=== PATIENT | female | born 1960 | race Caucasian/White ===

== ENCOUNTER 2016-11-25 07:27 | Emergency (ER) | payer BC ==
--- NOTE | 2016-11-25 08:40 | ERNOTE ---
Upper Extremity HPI - Narrative Date of Service: 11/25/16 - General Extremities Pain Location: thumb: right Source: patient, family Exam Limitations: no limitations - Immun/Allergies/Home Medications Allergies/Adverse Reactions: Allergies Allergy/AdvReac Type Severity Reaction Status Date / Time No Known Allergies Allergy Verified 11/25/16 07:43 Home Medications: HOME MEDICATIONS Acetaminophen with Codeine [Tylenol with Codeine #3 Tablet] 1 each PO Q6H PRN # 24 tab 11/25/16 [Last Taken Unknown] Amantadine HCl [Amantadine] 100 mg PO QID 11/25/16 [Last Taken Unknown] Citalopram Hydrobromide [Citalopram HBr] 20 mg PO DAILY 11/25/16 [Last Taken Unknown] Loratadine [Claritin] 10 mg PO DAILY 11/25/16 [Last Taken Unknown] Meloxicam [Mobic] 15 mg PO DAILY 11/25/16 [Last Taken Unknown] Multivitamin [One Daily Essential] 1 each PO DAILY 11/25/16 [Last Taken Unknown] - History of Present Illness Narrative: 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 She apparently landed awkwardly on the right hand and incurred a thumb injury. Occurred: yesterday Location of Incident: home Severity: moderate Method of Injury: Reports: fell Reason for Fall: Reports: other - as stated Loss of Consciousness: Reports: no loss of consciousness Review of Systems - Review of Systems Constitutional: Present: See HPI EYE: Present: no symptoms reported ENT: Present: no symptoms reported Respiratory: Present: no symptoms reported Cardiology: Present: no symptoms reported Gastrointestinal/Abdominal: Present: no symptoms reported Genitourinary: Present: no symptoms reported Musculoskeletal: Present: See HPI Skin: Present: no symptoms reported Neurological: Present: See HPI Endocrine: Present: no symptoms reported Hematologic/Lymphatic: Present: no symptoms reported Psych: Present: no symptoms reported - Patient's Past Medical History Patient History - Medical: Other - Angelina's Chorea Patient History - Cardiac/Respiratory: No pertinent hx Patient History - Cancer: No Hx of Cancer Patient History - Surgical Procedures: Other Patient History - Other: None - Social History Living Situations: home Psych History: Hx of Depression Physical Exam - Physical Exam General Appearance: Present: wd/wn, alert, moderate distress Eye Exam: Normal inspection: bilateral, PERRL: bilateral Ears, Nose, Throat: Present: normal ENT inspection, hearing grossly normal, normal pharynx Neck: Present: normal inspection, nontender Respiratory: Present: no respiratory distress, normal breath sounds, no accessory muscle use, chest nontender, lungs clear Cardiovascular/Chest: Present: regular rate, rhythm, no murmur, normal peripheral pulses Gastrointestinal/Abdominal: Present: normal bowel sounds, nontender, nondistended, soft, no organomegaly Rectal Exam: Present: deferred Back Exam: Present: normal inspection, normal range of motion Extremity Exam: Present: no edema, other - tenderness at the right metacarpal phalangeal joint 1st digit Neurological Exam: Present: alert, oriented, normal mood/affect, other - constant choreiform motions Skin Exam: Present: normal color, warm/dry Lymphatic Exam: Present: no adenopathy ED Progress - Vital Signs Patient's Vital Signs:: I have reviewed the patient's vital signs. Vital Signs: Vital Signs 11/25/16 07:38 Temperature 36.3 C L Pulse Rate 73 Respiratory 16 Rate Blood Pressure 120/97 O2 Sat by Pulse 96 Oximetry - X-Ray X-Ray #1 X-Ray: hand Interpretation: Reviewed by me - Progress/Reassessment Chief Complaint: Hand Injury/Pain Progress:: Unchanged - Transfer of Care Expected Disposition: Discharge Procedures Pre-Proc Neuro Vasc Exam: normal Pre-Made Type: metal Splint: thumb spica Alignment good: Yes Splint applied by: Nurse Post-Proc Neuro Vasc Exam: normal Complications: Pt tony procedure well Plan - Plan Plan: Pt will continue to have falls as the Angelina's Disease progresses. Precautions will be warranted at the family level. Departure Clinical Impression: Thumb sprain Qualifiers: Encounter type: initial encounter Sprain of finger site: metacarpophalangeal joint Laterality: right Qualified Code(s): S63.641A - Sprain of metacarpophalangeal joint of right thumb, initial encounter - Departure Disposition: Home self-care Condition: Good Instructions: Thumb Sprain, Angelina Disease Referrals: Sanna Méndez MD [Primary Care Provider] - Prescriptions: Acetaminophen with Codeine [Tylenol with Codeine #3 Tablet] 1 each PO Q6H PRN # 24 tab PRN Reason: Moderate Pain
[2016-11-25] MEDS ORDERED: ACETAMINOPHEN WITH CODEINE 1 EACH TABLET PO ONE (09:01)
[2016-11-25] MEDS ORDERED: ACETAMINOPHEN WITH CODEINE 1 EACH TABLET ONE (09:03)
[2016-11-25 09:08] VITALS: BP 124/84
--- OUTSIDE RECORDS SUMMARY | 2016-11-25 09:09 | XMS REPORT | Continuity of Care Document ---
:1960 Author Organization [facility] ([facility]) Address [address] [place] [address] Phone [phone] Care Team Providers Name Role Phone Sanna Méndez Primary Care Provider [phone] Source Comments This disclosure is being made pursuant to the Care Everywhere program, applicable federal and state laws, and may not contain all informaitonavailable regarding this patient.[facility] ([facility]) Active Allergies and Adverse Reactions No Known Allergies Current Medications Prescription Sig. Disp. Refills Start Date End Date Status multivitamin Take 1 Tab by Active tablet mouth daily. loratadine Take 10 mg by Active (CLARITIN) 10 mg mouth daily. tablet AMANTadine 100 mg Take 1 120 capsule 11 07/15/2016 Active capsule capsule (100 mg total) by mouth 4 times daily. citalopram 20 mg daily. 10/22/2016 Active tablet meloxicam 7.5 mg Take 1 tablet 30 tablet 3 11/11/2016 Active tablet (7.5 mg total) by mouth daily. IBUPROFEN PO Take 2 Tabs 11/11/2016 Discontinued by mouth 4 times daily as needed. 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 Chorea 07/15/2016 Leiomyoma of uterus, unspecified 03/06/2006 Most Recent Encounters Date Type Specialty Providers Description 11/14/2016 Telephone Neurology Michelle Encinas MD Chief Comp: Results 11/11/2016 Office Visit Neurology Michelle Encinas MD Dx: Chorea 11/11/2016 Office Visit Pathology [facility]el Laboy Chief Comp: Patient MD Reported Reason For Lab Services, Pfp Visit 11/11/2016 Office Visit Med Rheumatology [facility]el Lab[facility] Dx: Anti-TPO antibodies present (Primary Dx) 11/08/2016 Telephone Neurology Michelle Encinas MD Chief Comp: Labs Only 08/30/2016 Telephone Diabetes Services Meredith Plaza MD Chief Comp: Results 08/28/2016 Telephone Neurology Kristi Jha Chief Comp: Scheduling Social History Tobacco Use Types Packs/Day Years Used Date Never Smoker Smokeless Tobacco: Never Used Tobacco Cessation:Counseling Given: Yes Comments: Alcohol Use Drinks/Week oz/Week Comments No Last Filed Vital Signs Vital Sign Reading Time Taken Blood Pressure 122/68 11/11/2016 10:53 AM TYPE MAPPER Pulse 74 11/11/2016 10:53 AM TYPE MAPPER Temperature 36.6 C (97.9 F) 11/11/2016 10:53 AM TYPE MAPPER Respiratory Rate 16 03/22/2016 1:16 PM CDT Height 1.676 m (5' 5.98") 11/11/2016 10:53 AM TYPE MAPPER Weight 54.3 kg (119 lb 11.4 oz) 11/11/2016 10:53 AM TYPE MAPPER Body Mass Index 19.33 11/11/2016 10:53 AM TYPE MAPPER Oxygen Saturation 98% 07/15/2016 12:53 PM CDT Plan of Care Date Type Specialty Providers Description 01/27/2017 Appointment Neurology Michelle Encinas MD Subj: Appointment Scheduled [address] [place] [address] [phone] (Fax) Health Maintenance Due Date Last Done Comments HCV Screening 1960 Hepatitis B Vaccine (1 of 3 - Primary Series) 1960 Tdap Vaccine 1971 Lipid Disorder Screening 1978 MMR Vaccine 1978 Td Vaccine 1978 Mammogram 2000 Cervical Cancer Screening 04/23/2002 04/23/1999 Colonoscopy 2010 Influenza Vaccine: Seasonal (#1) 04/29/2016 Results from Last 3 Months URINE MICROSCOPIC (11/11/2016 1:11 PM) Component Value Range White Blood Cells, Urine 7(H) 0-5 /HPF Red Blood Cells, Urine <1 0-2 /HPF Squamous Epithelial Cells, Urine 5 <=10 /LPF Hyaline Cast, Urine 4 <=10 /LPF Mucous-Urine Rare None, Rare Specimen Urine URINALYSIS (11/11/2016 1:11 PM) Component Value Range Color, Urine Yellow Straw, Pale Yellow, Yellow, Clear, None Clarity, Urine Slightly Cloudy(A) Clear pH, Urine 5.0 <9.0 Glucose, Urine Negative Negative Blood, Urine Negative Negative Ketones, Urine Negative Negative Protein, Urine Negative Negative Urobilinogen, Urine Normal Normal Bilirubin, Urine Negative Negative Leukocyte Esterase, Urine Negative Negative Nitrite, Urine Negative Negative Spec Comins, Urine 1.025 1.000-1.030 Specimen Urine DIFFERENTIAL (11/11/2016 12:49 PM) Component Value Range % Neutrophils-Auto Diff 73.1 % Neutrophils-Auto Diff 4750 6041-4598 /MM3 % Lymphocytes-Auto Diff 19.8 % Lymphocytes-Auto Diff 1524 319-3107 /MM3 % Monocytes-Auto Diff 5.9 % Monocytes-Auto Diff 380 130-860 /MM3 % Eosinophils-Auto Diff 0.8 % Eosinophils-Auto Diff 50 40-390 /MM3 % Basophils 0.2 % Basophils-Auto Diff 10 10-136 /MM3 % Immature Granulocytes-Auto Diff 0.2 % Immature Granulocytes-Auto Diff 10 /MM3 Specimen Whole Blood CBC (COMPLETE BLOOD COUNT) (11/11/2016 12:49 PM) Component Value Range WBC Count 6.5 3.7-10.5 K/MM3 RBC Count 5.01 4.00-5.20 M/MM3 Hemoglobin 14.4 11.9-15.5 g/dL Hematocrit 43 35-47 % MCV (Mean Corpuscular Volume) 86 82-99 FL MCH (Mean Corpuscular Hemoglobin) 29 25-35 PG MCHC (Mean Corpuscular Hemoglobin Concentration) 34 32-36 % Platelet Count 190 150-400 K/MM3 MPV (Mean Platelet Volume) 11.0 9.4-12.3 FL RBC Dist Width-STD 41.7 36.4-46.3 FL RBC Distrib Width 13.4 9.0-14.5 % Nucleated RBC 0 /100 WBC Specimen Whole Blood TOTAL PROTEIN (11/11/2016 12:49 PM)Only the most recent of2 resultswithin the time period is included. Component Value Range Total Protein 6.9 6.0-8.0 g/dL Specimen Blood SERUM PROTEIN ELECTROPHORESIS (11/11/2016 12:49 PM) Component Value Range SPEP-Total Protein 6.9 6.0-8.0 g/dL SPEP-Albumin 4.5 3.7-5.0 g/dL SPEP-Alpha1 Fraction 0.3 0.3-0.5 g/dL SPEP-Alpha2 Fraction 0.6 0.4-0.6 g/dL SPEP-Beta1 Fraction 0.4 g/dL SPEP-Beta2 Fraction 0.3 g/dL SPEP-Beta Fraction Total 0.7 0.6-0.9 g/dL SPEP-Gamma Fraction 0.9 0.5-1.3 g/dL SPEP-Monoclonal Protein 0.0 g/dL SPEP-Path Interp See TextComment: A monoclonal protein is not identified by serum protein electrophoresis. Jennifer Batista M.D., R1 Pathology Resident I have personally reviewed the patient studies and I agree with the above report. Randy Villatoro M.D, Ph.D., Public Health Staff Nurse, Clinical Chemistry Laboratory, [facility] Questions can be directed to the Pathology Chemistry resident (pager #[phone]) Specimen Blood FERRITIN (11/11/2016 12:49 PM) Component Value Range Ferritin 37.7 13.0-150.0 ng/mL Specimen Blood CALCIUM (11/11/2016 12:49 PM) Component Value Range Calcium 9.3 8.5-10.5 mg/dL Specimen Blood VITAMIN D, 25-HYDROXY (11/11/2016 12:49 PM) Component Value Range Vitamin D, 25-OH 34Comment: 20-80 ng/mL This assay accurately quantifies the sum of 25-hydroxyvitamin D3 and 25- hydroxyvitamin D2. Endocrine Society, [place] of [employer] (IOM), and World Health Organization (WHO) guidelines designate 25-h ydroxyvitamin D plasma concentrations below 20 ng/mL as deficient, based on increased frequency of adverse outcomes (e.g., osteoporotic fractures). 25-Hydroxyvitamin D reference ranges are a controversial topic, with some authorities suggesting optimal concentrations should be 30 ng/mL or higher based on correlations of 25-hydroxyvitamin D plasma concentrations with physiological parameters such as parathyroid hormone or calcium concentrations. However, optimal 25-hydroxyvitamin D concentrations greater than 20 ng/mL may be considered for specific disease conditions. Vitamin D toxicity is uncommon but may be seen at 25-hydroxyvitamin D concentrations greater than 150 ng/mL. Specimen Blood TISSUE TRANSGLUTAMINASE IGA (11/11/2016 12:49 PM) Component Value Range TTG IgA, Quantitative <0.5 0.0-15.0 U/mL TTG IgA, Qualitative Negative Negative Specimen Blood ERYTHROCYTE SEDIMENTATION RATE (11/11/2016 12:49 PM) Component Value Range ESR (Erythrocyte Sedimentation Rate) 6 0-20 mm/Hr Specimen Whole Blood C-REACTIVE PROTEIN (11/11/2016 12:49 PM) Component Value Range CRP (C-Reactive Protein) <0.5 <=0.5 mg/dL Specimen Blood CREATININE (11/11/2016 12:49 PM) Component Value Range Creatinine 1.0Comment: 0.5-1.0 mg/dL Creatinine switched to enzymatic method on 02/05/2011.GFR equation switched to IDMS-traceable MDRD equation on 02/05/2011. Calculated GFR values are not valid in clinical settings where serum creatinine is changing. Calculated GFR 57(L) >60 mL/min/1.73 m2 Specimen Blood CBC WITH DIFFERENTIAL (11/11/2016 12:49 PM) Specimen Whole Blood Narrative The following orders were created for panel order CBC WITH DIFFERENTIAL. Procedure Abnormality Status --------- ------ CBC (COMPLETE BLOOD COUNT)[[id number]] Final result DIFFERENTIAL[[id number]] Final result Please view results for these tests on the individual orders. LACTATE DEHYDROGENASE (LDH) (11/11/2016 12:49 PM) Component Value Range LDH 198 135-214 U/L Specimen Blood GAMMA GLUTAMYLTRANSPEPTIDASE (11/11/2016 12:49 PM) Component Value Range GGT 11 5-36 U/L Specimen Blood BILIRUBIN, TOTAL (11/11/2016 12:49 PM) Component Value Range Bilirubin Total 0.4 <=1.2 mg/dL Specimen Blood BILIRUBIN, DIRECT (11/11/2016 12:49 PM) Component Value Range Bilirubin, Direct <0.2 0.0-0.2 mg/dL Specimen Blood ASPARTATE AMINOTRANSFERASE (11/11/2016 12:49 PM) Component Value Range AST 18Comment: 0-32 U/L Adult reference ranges updated on 08/24/13 at 830am Specimen Blood ALKALINE PHOSPHATASE (11/11/2016 12:49 PM) Component Value Range ALP 71 35-104 U/L Specimen Blood ALBUMIN (11/11/2016 12:49 PM) Component Value Range Albumin 4.4 3.4-4.8 g/dL Specimen Blood ALANINE AMINOTRANSFERASE (11/11/2016 12:49 PM) Component Value Range ALT 16Comment: 0-33 U/L The upper limit of normal for alanine aminotransferase (ALT) reference ranges for adults is controversial with some authorities recommending limit as low as 30 U/L for males and 19 U/L for females. Th ere is increased incidence of subclinical liver disease (e.g., early steatohepatitis) in patients with ALT values in the range of 31-41 U/L for males and 20-33 U/L for females. ALT values should alway s be interpreted in conjunction with clinical history, physical examination findings, and, if applicable, data from other diagnostic tests. Specimen Blood COPPER LEVEL, URINE (11/11/2016 8:00 AM) Component Value Range Hours Collected 25 hr Total Volume 1479 mL Copper, Urine - ratio to HEADLIGHT ASSEMBLER Not ApplicableComment: ug/g HEADLIGHT ASSEMBLER Unable to accurately calculate the creatinine normalized result due to a low per volume result. Copper, Urine - per volume <1.0(L)Comment: 0.2-8.0 ug/dL INTERPRETIVE INFORMATION: Copper, Urine Individuals with symptomatic Home disease usually excrete more than 100 ug copper per day. Other conditions associated with elevated urine copper include cholestatic liver disease, proteinuria, some medications, and contaminated specimens. Although random specimens may contain diagnostic information, a 24-hour collection is a more consistent indicator of urine copper. Test developed and characteristics determined by [employer]. See Compliance Statement B: [employer] Copper, Urine - per 24 h Not Applicable 3-50 ug/d Creatinine, Urine - per volume 61 mg/dL Creatinine, Urine - per 24 h 866Comment: 500-1400 mg/d Performed by [facility], [address] [place] [address] [email or web address]), Ricardo Chakraborty MD, Lab. Director Specimen Urine Narrative Specimen Source: Specimen Start Date:
== END 2016-11-25 09:13 | disposition home or self-care (01) ==
LOC: ER 07:27
PROC: 2W3GX1Z Immobilization of Right Thumb using Splint (ICD-10-PCS; principal; 2016-11-25)
DX: S63.641A Sprain of metacarpophalangeal joint of right thumb, initial encounter (principal); W19.XXXA Unspecified fall, initial encounter; Z91.81 History of falling; Y92.009 Unspecified place in unspecified non-institutional (private) residence as the place of occurrence of the external cause

== ENCOUNTER 2017-07-27 13:03 | Emergency (ER) | payer BC ==
[2017-07-27] MEDS ORDERED: DIPHTH,PERTUSS(ACELL),TET VAC 0.5 ML VIAL IM ONE ×2 (13:30→13:44)
[2017-07-27 13:39] VITALS: BP 117/48
--- NOTE | 2017-07-27 13:44 | ERNOTE ---
Head Injury HPI - Narrative Date of Service: 07/27/17 - General Injury to: head Time Seen by Provider: 07/27/17 13:15 Source: patient Exam Limitations: no limitations - Immun/Allergies/Home Medications Immunization: IMMUNIZATION HX Immunizations Up to Date Yes History of Influenza Vaccine Yes Hx Pneumococcal Vaccination Yes Allergies/Adverse Reactions: Allergies Allergy/AdvReac Type Severity Reaction Status Date / Time No Known Allergies Allergy Verified 07/27/17 13:13 Home Medications: HOME MEDICATIONS Amantadine HCl [Amantadine] 100 mg PO QID 11/25/16 [Last Taken Unknown] Citalopram Hydrobromide [Citalopram HBr] 20 mg PO DAILY 11/25/16 [Last Taken Unknown] Loratadine [Claritin] 10 mg PO DAILY 11/25/16 [Last Taken Unknown] Meloxicam [Mobic] 15 mg PO DAILY 11/25/16 [Last Taken Unknown] Multivitamin [One Daily Essential] 1 each PO DAILY 11/25/16 [Last Taken Unknown] - History of Present Illness Narrative: Pt. comes in with c/o laceration after she tripped and hit the back of her head on the end table in her living room. 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 Pt. states that she has some mild dizziness, but denies any headache, NVD, fever, recent illness, or injury, and denies any SOB, or CP, LOC or alleviating factors or aggravating factors. Pt. is unsure of when her last tetanus was. Review of Systems - Review of Systems Constitutional: Present: no symptoms reported. Absent: recent illness, fever, chills, weakness, fatigue, malaise EYE: Present: no symptoms reported ENT: Present: no symptoms reported Respiratory: Present: no symptoms reported. Absent: shortness of breath, cough , wheezing Cardiology: Present: no symptoms reported. Absent: chest pain, palpitations, edema Gastrointestinal/Abdominal: Present: no symptoms reported. Absent: nausea, vomiting, diarrhea Genitourinary: Present: no symptoms reported Musculoskeletal: Present: no symptoms reported. Absent: back pain, joint pain Skin: Present: other - laceration post scalp. Absent: rash, change in hair/ nails Neurological: Present: dizziness/light-headedness, pre-existing deficit - chorea. Absent: headache, numbness, tingling Endocrine: Present: no symptoms reported Hematologic/Lymphatic: Present: no symptoms reported Psych: Present: no symptoms reported - Patient's Past Medical History Patient History - Medical: Other - eric's Chorea Patient History - Cardiac/Respiratory: No pertinent hx Patient History - Cancer: No Hx of Cancer Patient History - Surgical Procedures: T & A Patient History - Other: None LMP (females 10-50): 1 year ago - Social History Living Situations: home Psych History: Hx of Depression Smoking Status: Never smoker Alcohol Use: none Drug Use: none - Immunizations Immunizations Up to Date: Yes Hx Pneumococcal Vaccination: Yes History of Influenza Vaccine: Yes Physical Exam - Physical Exam General Appearance: Present: wd/wn, alert, no apparent distress Head Exam: Present: lacerations - post occiput 1cm gaping open 0.3cm into subcutaneous Eye Exam: Normal inspection: bilateral, PERRL: bilateral, EOMI: bilateral Ears, Nose, Throat: Present: normal ENT inspection, normal pharynx Neck: Present: normal inspection, nontender. Absent: lymphadenopathy (R), lymphadenopathy (L) Respiratory: Present: no respiratory distress, normal breath sounds, no accessory muscle use, chest nontender, lungs clear Cardiovascular/Chest: Present: regular rate, rhythm, no murmur, normal peripheral pulses Back Exam: Present: normal inspection, normal range of motion, no vertebral tenderness Extremity Exam: Present: normal inspection, non-tender, normal range of motion, no edema Neurological Exam: Present: alert, oriented, normal mood/affect, no motor/ sensory deficits, therapist occupational II-XII nml as tested, normal cerebellar test Skin Exam: Present: normal color, warm/dry ED Progress - Vital Signs Patient's Vital Signs:: I have reviewed the patient's vital signs. Vital Signs: Vital Signs 07/27/17 13:05 Temperature 36.9 C Pulse Rate 87 Respiratory 16 Rate Blood Pressure 137/80 O2 Sat by Pulse 95 Oximetry - CT/Ultrasound CT/Ultrasound Narrative: Head CT without any intracraneal process. - Progress/Reassessment Chief Complaint: Head Injury Progress:: Improved Procedures Posterior Occipital I & D Prep: betadine prep Length of Repair/Wound (cm): 1 Wound's Depth/Shape: into subcutaneous Wound Explored: clean Wound Intervention: irrigated w/saline Distal NVT: neuro/vasc intact Wound Repaired With: christy Number of Sutures: 4 - close christy Complications: Pt tony procedure well Departure Clinical Impression: Laceration Head injury Qualifiers: Encounter type: initial encounter Qualified Code(s): S09.90XA - Unspecified injury of head, initial encounter - Departure Disposition: Home self-care Condition: Good Instructions: Laceration Care, Adult, [id number] Additional Instructions: Please may wash hair once as much as able with baby shampoo only suad not scrub and be careful brushing hair. Please have christy removed in 7-10 days. Referrals: Sanna Méndez MD [Primary Care Provider] -
== END 2017-07-27 14:41 | disposition home or self-care (01) ==
LOC: ER 13:03
PROC: 0JQ00ZZ Repair Scalp Subcutaneous Tissue and Fascia, Open Approach (ICD-10-PCS; principal; 2017-07-27)
DX: S01.81XA Laceration without foreign body of other part of head, initial encounter (principal); W01.190A Fall on same level from slipping, tripping and stumbling with subsequent striking against furniture, initial encounter; Z91.81 History of falling; Y93.9 Activity, unspecified; Y92.008 Other place in unspecified non-institutional (private) residence as the place of occurrence of the external cause; S09.90XA Unspecified injury of head, initial encounter; G10 Huntington's disease; Z23 Encounter for immunization

== ENCOUNTER 2017-08-20 13:57 | Emergency (ER) | payer BC ==
[2017-08-20] MEDS ORDERED: MECLIZINE HCL 25 MG TABLET PO ONE (14:43)
--- NOTE | 2017-08-20 14:44 | ERNOTE ---
Dizziness ER Record Date of Service: 08/20/17 Presenting Symptoms: dizziness Time Seen by Provider: 08/20/17 14:30 Source: patient, family, RN notes reviewed Exam Limitations: clinical condition Immunizations: IMMUNIZATION HX Immunizations Up to Date Yes History of Influenza Vaccine Yes Hx Pneumococcal Vaccination Yes Allergies/Adverse Reactions: Allergies Allergy/AdvReac Type Severity Reaction Status Date / Time No Known Allergies Allergy Verified 08/20/17 14:06 Home Medications: HOME MEDICATIONS Amantadine HCl [Amantadine] 100 mg PO QID 11/25/16 [Last Taken Unknown] Citalopram Hydrobromide [Citalopram HBr] 20 mg PO DAILY 11/25/16 [Last Taken Unknown] Loratadine [Claritin] 10 mg PO DAILY 11/25/16 [Last Taken Unknown] Multivitamin [One Daily Essential] 1 each PO DAILY 11/25/16 [Last Taken Unknown] Meclizine HCl [Antivert] 25 mg PO TID PRN #20 tab 08/20/17 [Last Taken Unknown] - History of Present Illness Narrative: 57 year old female brought to the ED by her significant other for dizziness that began a little over a week ago. She fell 3 weeks ago, injuring her occipital scalp and having to have christy. A CT scan was done at that time and did not show any intracranial abnormality. She saw her PCP 2 days ago for the dizziness. She had lab work done, which was unremarkable. She contacted her PCP' s office yesterday about her ongoing symptoms. She was directed to come here if she was getting worse. Date (Duration): 07/27/17 - initial head injury Noted on awakening:: No Associated Symptoms: Present: nausea, light headedness. Absent: hearing loss, ringing/roaring in ear, ear pain, vomiting, headache, weakness, numbness, sweating, sense of confusion Sense of movement: Present: vague Decreased ability to stand/walk:: Present: walks w/o assistance Usually:: Present: walks w/o assistance Modifying Factors - (Improves): Reports: nothing Modifying Factors - (Worsens): Reports: changing position, movement of head Prior Treament: Reports: recently seen, treated by physician. Denies: similar symptoms before Review of Systems - Review of Systems Constitutional: Present: malaise. Absent: recent illness, fever, chills EYE: Absent: eye pain, vision changes ENT: Present: nose congestion, nasal drainage. Absent: ear pain, sore throat Respiratory: Absent: shortness of breath, cough Cardiology: Absent: palpitations, syncope Gastrointestinal/Abdominal: Absent: vomiting, diarrhea, abdominal pain Genitourinary: Absent: frequency, decreased urinary output Musculoskeletal: Absent: muscle pain, neck pain Skin: Absent: lesions, lumps Neurological: Present: dizziness/light-headedness. Absent: headache, weakness, numbness Endocrine: Present: no symptoms reported Hematologic/Lymphatic: Present: no symptoms reported Psych: Present: no symptoms reported - Patient's Past Medical History Patient History - Medical: Other - Pawnee's chorea Patient History - Cardiac/Respiratory: No pertinent hx Patient History - Cancer: No Hx of Cancer Patient History - Surgical Procedures: T & A, Other Patient History - Other: None LMP (females 10-50): post - Social History Living Situations: home Psych History: Hx of Depression Smoking Status: Never smoker Alcohol Use: none Drug Use: none - Immunizations Immunizations Up to Date: Yes Hx Pneumococcal Vaccination: Yes History of Influenza Vaccine: Yes Physical Exam - Physical Exam General Appearance: Present: alert, no apparent distress, thin Head Exam: Present: normal inspection Eye Exam: Normal inspection: bilateral, PERRL: bilateral Ears, Nose, Throat: Present: nasal congestion, normal pharynx. Absent: hearing decreased, abnormal TM (R), abnormal TM (L), sinus pain/drainage Neck: Present: normal inspection, nontender, supple Respiratory: Present: no respiratory distress, normal breath sounds, no accessory muscle use, lungs clear Cardiovascular/Chest: Present: regular rate, rhythm, no murmur Extremity Exam: Present: normal inspection, non-tender, no edema Neurological Exam: Present: alert, oriented, other - chorea present. Absent: normal mood/affect Skin Exam: Present: warm/dry, pallor ED Progress - Results and Orders Patient's Lab Results:: I have reviewed the patient's lab results. - Vital Signs Patient's Vital Signs:: I have reviewed the patient's vital signs. Vital Signs: Vital Signs 08/20/17 08/20/17 14:06 14:14 Temperature 37.6 C H Pulse Rate 82 102 H Respiratory 16 Rate Blood Pressure 118/69 O2 Sat by Pulse 98 Oximetry - Progress/Reassessment Chief Complaint: Dizziness Progress:: Improved Plan - Plan Plan: Labs are stable since checked 2 days ago by her PCP. They were requesting to have another CT scan of the head done, but explained that this would not be beneficial as the only symptom she has been having is lightheadedness which is not indicative of intracranial bleeding. The lightheadedness did improve after Meclizine. Rx given. Recommended contacted her neurologist if symptoms persist. Patient in agreement with plan. Departure Clinical Impression: Dizziness, nonspecific - Departure Disposition: Home Follow Up Needed Condition: Good Instructions: Dizziness, [id number] Additional Instructions: Continue your current medications Contact neurology for follow up if no improvement by next week Referrals: Sanna Méndez MD [Primary Care Provider] - Prescriptions: Meclizine HCl [Antivert] 25 mg PO TID PRN #20 tab PRN Reason: dizziness
[2017-08-20] MEDS ORDERED: MECLIZINE HCL 25 MG TABLET ONE (14:51)
[2017-08-20 14:57] LABS: Hematocrit 38.6 % (37.0-47.0); Hemoglobin 12.9 gm/dL (12.5-16.0); Mean Cell Volume 88.9 fl (78-100); Mean Corpuscular Hemoglobin 29.7 pg (27-31); Mean Corpuscular Hgb Conc 33.4 g/dl (32-36); Mean Platelet Volume 10.1 fl (6.0-9.5); Neutrophil # 5.1 K/mm3 (1.3-6.0); Neutrophil % 72.4 % (42-75.0); Platelet Count 164 K/mm3 (150-450); Red Blood Count 4.34 M/mm3 (4.2-5.4); Red Cell Distribution Width 12.7 % (11.5-14.0)
[2017-08-20 15:17] LABS: Anion Gap 12.4 mmol/L (6.8-13.8); BUN/Creatinine Ratio 32.4 (9.0-21.6); Bilirubin, Total 0.5 mg/dL (0.0-1.1); Ca. Corrected For Albumin 8.5 mg/dL (8.4-10.2); Calcium * 8.8 mg/dL (7.9-10.9); Carbon Dioxide 30.8 mmol/L (24-32.6); Potassium 4.2 mmol/L (3.4-4.6); Total Protein 7.2 gm/dL (6.2-8.2)
[2017-08-20 15:33] VITALS: BP 123/74
== END 2017-08-20 15:37 | disposition home or self-care (01) ==
LOC: ER 13:57
DX: R42 Dizziness and giddiness (principal)

== ENCOUNTER 2017-08-29 14:42 | Emergency (ER) | payer BC ==
--- NOTE | 2017-08-29 15:36 | ERNOTE ---
Head Injury HPI - Narrative Date of Service: 08/29/17 - General Injury to: head Time Seen by Provider: 08/29/17 15:18 Source: patient, family Exam Limitations: no limitations - Immun/Allergies/Home Medications Immunization: IMMUNIZATION HX Immunizations Up to Date Yes History of Influenza Vaccine No Hx Pneumococcal Vaccination No Allergies/Adverse Reactions: Allergies Allergy/AdvReac Type Severity Reaction Status Date / Time No Known Allergies Allergy Verified 08/29/17 14:58 Home Medications: HOME MEDICATIONS Amantadine HCl [Amantadine] 100 mg PO QID 11/25/16 [Last Taken Unknown] Citalopram Hydrobromide [Citalopram HBr] 20 mg PO DAILY 11/25/16 [Last Taken Unknown] Loratadine [Claritin] 10 mg PO DAILY 11/25/16 [Last Taken Unknown] Multivitamin [One Daily Essential] 1 each PO DAILY 11/25/16 [Last Taken Unknown] Omeprazole Magnesium [Prilosec Otc] 20 mg PO DAILY 08/29/17 [Last Taken Unknown] - History of Present Illness Narrative: Pt. comes in with pain in her post occiput and her neck and upper back after a fall in her bathtub 3 days ago. Pt. denies any numbness or tingling but does state that she has been dizzy and had had nausea with occasional episodes of vomiting since incident. Occurred: last week Location Occurred: home Severity: moderate Head Injury Location: occipital Method of Injury: Reports: fell Reason for Fall: Reports: lost balance Loss of Consciousness: Reports: no loss of consciousness Associated Symptoms: Reports: neck pain, nausea, other injuries - upper back pain Review of Systems - Review of Systems Constitutional: Present: no symptoms reported. Absent: recent illness, fever, chills, weakness, fatigue, malaise EYE: Present: no symptoms reported. Absent: double vision, vision changes ENT: Present: no symptoms reported. Absent: nose congestion, nasal drainage, throat swelling Respiratory: Present: no symptoms reported. Absent: shortness of breath, cough , wheezing Cardiology: Present: no symptoms reported. Absent: chest pain, palpitations, edema Gastrointestinal/Abdominal: Present: nausea. Absent: vomiting, diarrhea, abdominal pain Genitourinary: Present: no symptoms reported Musculoskeletal: Present: back pain, neck pain Skin: Present: lumps - post occiput Neurological: Present: headache, dizziness/light-headedness, pre-existing deficit. Absent: seizure, weakness, numbness, tingling All Other Systems: All systems neg except as marked - Patient's Past Medical History Patient History - Medical: Other - eric's chorea Patient History - Cardiac/Respiratory: No pertinent hx Patient History - Cancer: No Hx of Cancer Patient History - Surgical Procedures: T & A, Other Patient History - Other: None - Social History Living Situations: home Psych History: Hx of Depression Smoking Status: Never smoker Have you smoked in the past 12 months: No Do you dip or chew tobacco: No Alcohol Use: none Drug Use: none - Immunizations Immunizations Up to Date: Yes Hx Pneumococcal Vaccination: No History of Influenza Vaccine: No Physical Exam - Physical Exam General Appearance: Present: wd/wn, alert, no apparent distress Head Exam: Present: contusions - pR post occiput 4cm in diameter. Absent: active bleeding, lacerations Eye Exam: Normal inspection: bilateral, PERRL: bilateral, EOMI: bilateral Ears, Nose, Throat: Present: normal ENT inspection, normal pharynx Neck: Present: normal inspection, nontender, supple, full range of motion. Absent: lymphadenopathy (R), lymphadenopathy (L) Respiratory: Present: no respiratory distress, normal breath sounds, no accessory muscle use, chest nontender, lungs clear Cardiovascular/Chest: Present: regular rate, rhythm, no murmur, normal peripheral pulses Gastrointestinal/Abdominal: Present: normal bowel sounds, nontender, nondistended, soft, no organomegaly Back Exam: Present: normal inspection, normal range of motion, no CVA tenderness , no vertebral tenderness Extremity Exam: Present: normal inspection, non-tender, normal range of motion, no edema Neurological Exam: Present: alert, oriented, normal mood/affect, no motor/ sensory deficits, services clerk II-XII nml as tested, other - HINTS exam abnormal likely due to chorea Skin Exam: Present: normal color, warm/dry ED Progress - Vital Signs Patient's Vital Signs:: I have reviewed the patient's vital signs. Vital Signs: Vital Signs 08/29/17 08/29/17 15:00 15:21 Temperature 36.8 C 36.8 C Pulse Rate 87 82 Respiratory 16 16 Rate Blood Pressure 124/72 100/67 O2 Sat by Pulse 98 98 Oximetry - X-Ray X-Ray #1 X-Ray: thoracic Interpretation: Reviewed by me X-ray Comments: No obvious acute osseous abnormality - CT/Ultrasound CT/Ultrasound Narrative: head and neck CT without any acute abnormality. Head CT with some possible normal pressure hydrocephalus but scan does not look unchanged from previous so feel that this is unlikely but will refer pt. to PCP for follow up. - Progress/Reassessment Chief Complaint: Head Injury Progress:: Unchanged Departure Clinical Impression: Thoracic sprain Head injury Qualifiers: Encounter type: initial encounter Qualified Code(s): S09.90XA - Unspecified injury of head, initial encounter Cervical sprain Qualifiers: Encounter type: initial encounter Qualified Code(s): S13.9XXA - Sprain of joints and ligaments of unspecified parts of neck, initial encounter - Departure Disposition: Home self-care Condition: Good Instructions: Muscle Strain, [id number], Head Injury, Adult, [id number] Additional Instructions: Please follow up with primary provider in 2-3 days. Please do not shower alone and discuss with your primary provider home health referral for help with bathing and safety in the home. Referrals: Sanna Méndez MD [Primary Care Provider] -
[2017-08-29 16:47] VITALS: BP 145/66
== END 2017-08-29 16:35 | disposition home or self-care (01) ==
LOC: ER 14:42
DX: S13.9XXA Sprain of joints and ligaments of unspecified parts of neck, initial encounter (principal); S09.90XA Unspecified injury of head, initial encounter; S23.3XXA Sprain of ligaments of thoracic spine, initial encounter; W18.39XA Other fall on same level, initial encounter; Y93.89 Activity, other specified; Y92.89 Other specified places as the place of occurrence of the external cause; Y99.9 Unspecified external cause status

== ENCOUNTER 2019-07-14 16:39 | Inpatient (IN) ==
[2019-07-14] MEDS ORDERED: BUPIVACAINE HCL/EPINEPHRINE 50 ML VIAL ONE (16:46)
[2019-07-14] MEDS ORDERED: BACITRACIN 50,000 UNITS VIAL ONE (16:46)
--- NOTE | 2019-07-14 16:56 | ANES ---
Anesthesia Pre Procedure Eval HOME MEDICATIONS Loratadine [Claritin] 10 mg PO DAILY 11/25/16 [Last Taken Unknown] gabapentin 400 mg capsule 400 mg PO TID 07/23/18 [Last Taken 06/30/19] omeprazole magnesium 20 mg tablet,delayed release 20 mg PO DAILY PRN 10/30/18 [Last Taken Unknown] naproxen 500 mg tablet 500 mg PO BID #60 tab 05/10/19 [Last Taken 06/30/19] hydrocodone 5 mg-acetaminophen 325 mg tablet See Rx Instructions PO Q6H PRN #75 tab 06/23/19 [Last Taken 06/30/19] tetrabenazine 25 mg tablet 12.5 mg PO BID tab 06/28/19 [Last Taken 07/01/19] oxycodone-acetaminophen 5 mg-325 mg tablet 1 - 2 tab PO Q4H PRN #60 tab 07/06/19 [Last Taken Unknown] duloxetine 20 mg capsule,delayed release 20 mg PO DAILY #30 cap 07/07/19 [Last Taken Unknown] pregabalin 100 mg capsule 100 mg PO BID #60 cap 07/07/19 [Last Taken Unknown] Allergies/Adverse Reactions: Allergies Allergy/AdvReac Type Severity Reaction Status Date / Time No Known Allergies Allergy Verified 07/14/19 15:23 - Planned Procedure Planned Procedure: I&D Abscess Medication List Reviewed:: Yes Allergies Verified: Yes Medical History (Updated 07/01/19 @ 11:09 by Ruthann Sahu RN) Left knee injury (Acute) Onset Date: ~10/24/18 Knee pain, left (Acute) Onset Date: ~10/24/18 Mariam presents for evaluation of left knee pain after twisting injury on Friday. She has a stable knee on exam with some meniscal irritation signs. Of note, she also has a history of Donalds's disease. I counseled her on options including nonoperative management with symptomatic care and physical therapy versus obtaining an MRI for further evaluation. She would like to proceed with a trial of PT and nonoperative management. Acid reflux Ankle fracture, left Onset Date: 06/21/19 left fibula Fibromyalgia H/O menorrhagia Onset Date: Unknown Rare disorder causing involuntary movements and spasms Onset Date: Unknown Seasonal allergies Huntingtons chorea Onset Date: Unknown Rosacea, unspecified Onset Date: Unknown Uterine fibroid Onset Date: Unknown Surgical History (Updated 07/14/19 @ 13:51 by Lupe Gillis LPN) History of open reduction and internal fixation (ORIF) procedure Onset Date: ~07/01/19 Open reduction internal fixation left lateral malleolus fracture, syndesmotic stabilization: Dr. Pierson History of tonsillectomy Onset Date: Unknown History of uterine fibroid removal Family History (Updated 07/01/19 @ 11:08 by Ruthann Sahu RN) Father Heart disease Hypertension Mother Dementia History of stroke Binswanger's disease possible these illnesses could have been Donalds's Disease Brother Alive and well Brother Alive and well - Family Anesthesia History Family History:: no untoward family reactions to anesthesia, no familial bleeding tendencies, no family history of clotting disorders, no family history of premature - Airway/Neck/Teeth Teeth Condition: missing Neck Exam: full range of motion Mallampatti Score: 2 Thyromental (T-M) distance: > 6 cm Mandibulo Hyoid distance: > 3 cm - Respiratory Respiratory Physical: lungs clear Smoking Status: Never smoker Sleep Apnea currently treated: No Sleep Apnea by current assessment: No - Cardiovascular Tolerate Activity: Poor - limited mobility secondary to Huntingtons Heart Sounds: S1 & S2, Regular - Anesthesia Assessment and Plan ASA Class: PS, III, E Anesthesia Type Plan: MAC
[2019-07-14] MEDS ORDERED: PROPOFOL VIAL IV ONE (17:03)
[2019-07-14] MEDS ORDERED: ceFAZolin SODIUM 1 GM VIAL IV ONE (18:10)
[2019-07-14] MEDS ORDERED: ceFAZolin SODIUM 1 GM VIAL ONE (18:12)
--- NOTE | 2019-07-14 19:43 | ANES ---
Post Anesthesia Discharge - Transfer of Care Transfer of Care handoff given to nurse: Yes - Discharge to ASU Discharge to ASU-no complications/pt stable: Yes - In room, alert.
--- NOTE | 2019-07-14 20:50 | ANES ---
Post Anesthesia Assessment - Vital Signs Vitals: Last Vital Signs Temp 37.4 C 07/14/19 19:50 Pulse 100 07/14/19 19:50 Resp 16 07/14/19 19:50 BP 113/67 07/14/19 19:50 Pulse Ox 98 07/14/19 19:50 Airway Patency: Normal - Mental Status Level Of Consciousness: Awake, Alert, Appropriate - Pain Level Pain Score: 0 - N/V Assessment Nausea/Vomiting Presence: None Dehydration:: No
[2019-07-14] MEDS ORDERED: PANTOPRAZOLE SODIUM 20 MG TABLET.DR PO PRN (20:54)
[2019-07-14] MEDS: CIPROFLOXACIN IN 5 % DEXTROSE 400 MG/200 ML BAG IV SCH (21:04)
[2019-07-14] MEDS: metroNIDAZOLE/SODIUM CHLORIDE 500 MG/100 ML BAG IV SCH (21:35)
[2019-07-14] MEDS: oxyCODONE HCL/ACETAMINOPHEN 1 TAB TABLET PO PRN (21:41)
[2019-07-14] MEDS: ENOXAPARIN SODIUM 40 MG/0.4 ML SYRG SC SCH (22:44)
[2019-07-15] MEDS: metroNIDAZOLE/SODIUM CHLORIDE 500 MG/100 ML BAG IV SCH ×3 (05:42→23:51)
[2019-07-15] MEDS: oxyCODONE HCL/ACETAMINOPHEN 1 TAB TABLET PO PRN ×3 (05:43→23:43)
[2019-07-15] MEDS ORDERED: RINGER'S SOLUTION,LACTATED 1,000 ML IV PRN (06:00)
[2019-07-15] MEDS ORDERED: BUPIVACAINE HCL/EPINEPHRINE 50 ML VIAL IJ PRN ×2 (06:00→14:27)
[2019-07-15] MEDS ORDERED: ceFAZolin SODIUM/DEXTROSE,ISO 2 GM/50 ML BAG IV PRN (06:00)
[2019-07-15] MEDS ORDERED: PANTOPRAZOLE SODIUM 20 MG TABLET.DR PO PRN (06:30)
[2019-07-15] MEDS: TETRABENAZINE 12.5 MG PO SCH ×3 (06:37→18:25)
--- NOTE | 2019-07-15 07:23 | OR ---
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 Méndez. She has Rashida's chorea. She had ORIF of a left ankle fracture on 07/02/2019. She has been relatively immobile. Her noted material on the rim of the toilet. There is erythema and induration in the gluteal cleft and left buttock. She will require anesthetic and assistance for visualization of the area. FINDINGS: Midline pilonidal cyst which connects with an 8 x 8 cm area of press ure necrosis in the soft tissue of the left buttock. NARRATIVE OF PROCEDURE: The patient was identified preoperatively and prior to the administration of anesthetic a multidisciplinary timeout was observed. The patient was given intravenous Ancef. After the introduction of intravenous sedation the patient was placed in the left lateral position with appropriate padding and monitoring. The gluteal cleft and buttocks were prepped with Betadine solution and isolated with sterile disposable drapes. Initial inspection revealed induration and erythema involving the medial aspect of the left buttock. There was a 3 mm central pore with visible underlying necrotic material and profuse purulent drainage with pressure on the buttock. The material was submitted for culture. There was also a 2 mm pore in the gluteal cleft which produced purulent material upon compression. The area was infiltrated with 0.5% Marcaine. The midline pore was probed and an underlying cavity identified. A 1 cm skin incision was made around the pore. The cavity was found to contain a large clump of hair. This was removed. The cavity was then debrided to healthy appearing subcutaneous tissue. Next the opening on the medial aspect of the left buttock was probed and found to connect to a large cavity in the subcutaneous tissue. A cruciate skin incision was made and the area entered. There was a large amount of necrotic subcutaneous fat which was gradually debrided back to viable appearing tissue. A finger was used to break up all loculations and the interior the cavity was irrigated with saline and inspected to ensure that the full extent of necrosis had been addressed. The cavity was found to communicate with the medial area of pilonidal disease. The cavity appeared hemostatic. Additional 0.5% Marcaine was injected. After receiving correct counts, the wound was packed with 2 inch iodoform gauze. A dressing of folded 4 x 4's, Mepilex border, and Medipore tape was applied. The patient was then returned to the supine position. The patient tolerated the anesthetic and procedure well without complication. There was no measurable blood loss. She was transferred back to the floor for recovery. She will require admission observation for IV antibiotics and return to the OR for wound inspection and packing change tomorrow. The operative findings were explained to the patient and her using diagrams. Reviewed and electronically signed
[2019-07-15] MEDS: CIPROFLOXACIN IN 5 % DEXTROSE 400 MG/200 ML BAG IV SCH ×2 (08:40→19:39)
[2019-07-15] MEDS: GABAPENTIN 400 MG CAPSULE PO SCH ×3 (08:41→18:25)
[2019-07-15] MEDS: DULoxetine HCL 20 MG CAPSULE.SA PO SCH (08:41)
[2019-07-15] MEDS ORDERED: BUPIVACAINE HCL/EPINEPHRINE 50 ML VIAL ONE (12:14)
[2019-07-15] MEDS ORDERED: LIDOCAINE HCL 20 ML VIAL ONE (13:49)
[2019-07-15] MEDS ORDERED: PROPOFOL VIAL IV ONE (13:49)
[2019-07-15] MEDS ORDERED: fentaNYL CITRATE/PF 50 MCG/ML AMPUL ONE (13:50)
[2019-07-15] MEDS ORDERED: NALOXONE HCL 0.4 MG/ML VIAL ONE (13:50)
--- NOTE | 2019-07-15 13:56 | ANES ---
Anesthesia Pre Procedure Eval Vitals/Labs: Last Vital Signs Temp 36.3 C 07/15/19 10:00 Pulse 71 07/15/19 10:00 Resp 20 07/15/19 10:00 BP 135/60 07/15/19 10:00 Pulse Ox 96 07/15/19 10:00 HOME MEDICATIONS Loratadine [Claritin] 10 mg PO DAILY 11/25/16 [Last Taken Unknown] gabapentin 400 mg capsule 400 mg PO TID 07/23/18 [Last Taken 06/30/19] omeprazole magnesium 20 mg tablet,delayed release 20 mg PO DAILY PRN 10/30/18 [Last Taken Unknown] naproxen 500 mg tablet 500 mg PO BID #60 tab 05/10/19 [Last Taken 06/30/19] tetrabenazine 25 mg tablet 12.5 mg PO BID tab 06/28/19 [Last Taken 07/01/19] oxycodone-acetaminophen 5 mg-325 mg tablet 1 - 2 tab PO Q4H PRN #60 tab 07/06/19 [Last Taken Unknown] duloxetine 20 mg capsule,delayed release 20 mg PO DAILY #30 cap 07/07/19 [Last Taken Unknown] pregabalin 100 mg capsule 100 mg PO BID #60 cap 07/07/19 [Last Taken Unknown] Allergies/Adverse Reactions: Allergies Allergy/AdvReac Type Severity Reaction Status Date / Time No Known Allergies Allergy Verified 07/14/19 17:02 - Planned Procedure Planned Procedure: dressing change Medication List Reviewed:: Yes Allergies Verified: Yes Medical History (Updated 07/01/19 @ 11:09 by Ruthann Sahu RN) Left knee injury (Acute) Onset Date: ~10/24/18 Knee pain, left (Acute) Onset Date: ~10/24/18 Mariam presents for evaluation of left knee pain after twisting injury on Friday. She has a stable knee on exam with some meniscal irritation signs. Of note, she also has a history of Rashida's disease. I counseled her on options including nonoperative management with symptomatic care and physical therapy versus obtaining an MRI for further evaluation. She would like to proceed with a trial of PT and nonoperative management. Acid reflux Ankle fracture, left Onset Date: 06/21/19 left fibula Fibromyalgia H/O menorrhagia Onset Date: Unknown Rare disorder causing involuntary movements and spasms Onset Date: Unknown Seasonal allergies Huntingtons chorea Onset Date: Unknown Rosacea, unspecified Onset Date: Unknown Uterine fibroid Onset Date: Unknown Surgical History (Updated 07/14/19 @ 13:51 by Lupe Gillis LPN) History of open reduction and internal fixation (ORIF) procedure Onset Date: ~07/01/19 Open reduction internal fixation left lateral malleolus fracture, syndesmotic stabilization: Dr. Pierson History of tonsillectomy Onset Date: Unknown History of uterine fibroid removal Family History (Updated 07/01/19 @ 11:08 by Ruthann Sahu RN) Father Heart disease Hypertension Mother Dementia History of stroke Binswanger's disease possible these illnesses could have been Harford's Disease Brother Alive and well Brother Alive and well - Family Anesthesia History Family History:: no untoward family reactions to anesthesia, no familial bleeding tendencies, no family history of clotting disorders, no family history of premature - Airway/Neck/Teeth Within Normal Limits:: Yes Teeth Condition: intact Mallampatti Score: 2 Thyromental (T-M) distance: > 6 cm Mandibulo Hyoid distance: > 3 cm - Respiratory Respiratory Physical: lungs clear Smoking Status: Never smoker Discussed smoking cessation including day of surgery: No Sleep Apnea currently treated: No Sleep Apnea by current assessment: No Discussed Risks/Treatment of EULOGIO: No - Cardiovascular Tolerate Activity: Fair Heart Sounds: S1 & S2, Regular - Anesthesia Assessment and Plan ASA Class: PS, III Anesthesia Type Plan: MAC
[2019-07-15] MEDS ORDERED: RINGER'S SOLUTION,LACTATED 1,000 ML IV ONE (14:39)
--- NOTE | 2019-07-15 15:03 | ANES ---
Post Anesthesia Assessment - Vital Signs Vitals: Last Vital Signs Temp 36.8 C 07/15/19 14:51 Pulse 83 07/15/19 14:51 Resp 16 07/15/19 14:51 BP 118/63 07/15/19 14:51 Pulse Ox 96 07/15/19 14:51 Airway Patency: Normal - Mental Status Level Of Consciousness: Awake - Pain Level Pain Score: 0 - N/V Assessment Nausea/Vomiting Presence: None Dehydration:: No
--- NOTE | 2019-07-15 15:03 | ANES ---
Post Anesthesia Discharge - Transfer of Care Transfer of Care handoff given to nurse: Yes - Discharge from PACU Discharge from PACU when meets criteria: Yes - Discharge to ASU Discharge to ASU-no complications/pt stable: Yes
[2019-07-15] MEDS ORDERED: metroNIDAZOLE/SODIUM CHLORIDE 500 MG/100 ML BAG IV SCH (18:00)
[2019-07-15] MEDS: ENOXAPARIN SODIUM 40 MG/0.4 ML SYRG SC SCH ×2 (19:54→20:40)
[2019-07-16] MEDS: CIPROFLOXACIN IN 5 % DEXTROSE 400 MG/200 ML BAG IV SCH (05:22)
[2019-07-16] MEDS: oxyCODONE HCL/ACETAMINOPHEN 1 TAB TABLET PO PRN (05:55)
[2019-07-16] MEDS ORDERED: TETRABENAZINE 12.5 MG PO SCH (06:00)
--- NOTE | 2019-07-16 08:17 | OR ---
Operative Report - Dictated Report Narrative: OPERATIVE REPORT DATE OF OPERATION: 07/15/2019 PREOPERATIVE DIAGNOSIS: Abscess sacrum and left buttock POSTOPERATIVE DIAGNOSIS: Same OPERATION: Debridement of wound and packing change SURGEON: Juan David Ozuna MD ANESTHESIA: MAC/local INDICATIONS FOR PROCEDURE: The patient is a 59-year-old female with [place]'s chorea. She fell and fractured her left ankle which required ORIF. In the subsequent period of inactivity she is developed a combination of pilonidal abscess and pressure necrosis of the left buttock which required incision and drainage. She is brought back to monitor progression FINDINGS: Some residual nonviable tissue, however the base the wound is beginning to granulate NARRATIVE OF PROCEDURE: The patient was identified preoperatively and prior to the administration of anesthetic a multidisciplinary timeout was observed. With the patient in the left lateral position and after the ministration of intravenous sedation the perineum was inspected. The skin bridge between the sacrum and left buttock openings is nonviable as well as some of the margins of the opening. There is some residual nonviable fat but the wound is much less malodorous and surrounding inflammation has resolved. The base of the wound was debrided with scissors back to what appeared to be viable subcutaneous tissue. The skin bridge and margins of the ulcer were removed with scissors. The wound appeared hemostatic. It was irrigated with saline. The area was infiltrated with 0.5% Marcaine with epinephrine. After receiving a correct count the wound was repacked with 2 inch iodoform gauze. The wound was then dressed with folded 4 x 4, Mepilex border, and Medipore tape. The operative procedure was terminated at this point. The patient tolerated the anesthetic and procedure well without complication. There was minimal blood loss. No specimens were submitted. The patient was transferred back to the floor awake and in stable condition. The patient will require inpatient status for additional antibiotics and assistance with position changes and toileting. The wound now measures 3 cm x 5 cm opening with 3 cm depth and 1.5 cm undermining caudally. . Reviewed and electronically signed
--- NOTE | 2019-07-16 08:31 | PN ---
Subjective - Date and Time Seen Date: 07/15/19 Time: 07:45 Subjective Narrative: She has been comfortable. Her vital signs have been normal. Her stayed with her most of the night. She is tolerating clear liquid breakfast Objective - Review of Systems Generalized/Overall Review: Denies: Chills, Fever EENTM: Reports: No Symptoms Reported Respiratory: Denies: Cough, Shortness of Breath Cardiac: Denies: Chest Pain, Palpitations Abdominal: Reports: No Symptoms Reported Genitourinary Symptoms: Reports: No Symptoms Reported Musculoskeletal Complaints: Reports: Other - No complaints referable to the left leg. 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 Skin: Reports: Other - No new areas of concern Endocrine: Reports: No Symptoms Reported - Vitals Vitals: Last Vital Signs Temp 36.1 C 07/15/19 07:00 Pulse 84 07/15/19 07:00 Resp 16 07/15/19 07:00 BP 1425/65 H 07/15/19 07:00 Pulse Ox 98 07/15/19 07:00 - Exam Constitutional: Present: Alert, Oriented x3, Cooperative, No distress ENT Exam: Present: normal ENT inspection Neck: Present: normal inspection Respiratory: Present: no respiratory distress Cardiovascular/Chest: Present: regular rate, rhythm, other - Denies pain or tenderness /Rectal: Present: Exam deferred Extremity: Present: normal range of motion, normal inspection, other - Left cam boot Skin Exam: Present: warm/dry Neurologic: Present: other - Stable Neosho's chorea movements Appearance: Present: appropriate insight Eye contact: Present: cooperative, good eye contact Thoughts: Present: normal thought pattern Assessment/Plan - Problems/Diagnosis (1) Abscess, sacrum Problem: Acute Narrative: The process includes both pilonidal cyst disease and pressure necrosis of the left buttock from inactivity. The wound will require serial debridement until stable and then either packing changes or possibly a wound VAC. She will continue to need IV antibiotics to avoid possibility of seeding her left ankle hardware. (2) Huntingtons chorea Problem: Acute Narrative: She appears stable. Her waistline medications will be continued. This obviously complicates her rehabilitation from her ankle fracture and her immobility was the etiology for the sacral process. Will need to be mindful of frequent position changing to avoid other skin breakdown. (3) Bimalleolar fracture of left ankle Problem: Acute Qualifiers: Narrative: There are no problems referable to her left leg or foot. She was scheduled to start rehabilitation--- we will need to contact PT so she can begin this. We will also involve OT to assess her activities at home given her Rashida's chorea and physical limitations of the cam boot and sacral process.
[2019-07-16] MEDS: metroNIDAZOLE/SODIUM CHLORIDE 500 MG/100 ML BAG IV SCH ×2 (08:44→15:05)
--- NOTE | 2019-07-16 10:28 | ANES ---
Anesthesia Pre Procedure Eval Vitals/Labs: Last Vital Signs Temp 36.0 C 07/16/19 06:00 Pulse 71 07/16/19 06:00 Resp 20 07/16/19 06:00 BP 145/67 H 07/16/19 06:00 Pulse Ox 93 07/16/19 06:00 HOME MEDICATIONS Loratadine [Claritin] 10 mg PO DAILY 11/25/16 [Last Taken Unknown] gabapentin 400 mg capsule 400 mg PO TID 07/23/18 [Last Taken 06/30/19] omeprazole magnesium 20 mg tablet,delayed release 20 mg PO DAILY PRN 10/30/18 [Last Taken Unknown] naproxen 500 mg tablet 500 mg PO BID #60 tab 05/10/19 [Last Taken 06/30/19] tetrabenazine 25 mg tablet 12.5 mg PO BID tab 06/28/19 [Last Taken 07/01/19] oxycodone-acetaminophen 5 mg-325 mg tablet 1 - 2 tab PO Q4H PRN #60 tab 07/06/19 [Last Taken Unknown] duloxetine 20 mg capsule,delayed release 20 mg PO DAILY #30 cap 07/07/19 [Last Taken Unknown] pregabalin 100 mg capsule 100 mg PO BID #60 cap 07/07/19 [Last Taken Unknown] Allergies/Adverse Reactions: Allergies Allergy/AdvReac Type Severity Reaction Status Date / Time No Known Allergies Allergy Verified 07/14/19 17:02 - Planned Procedure Planned Procedure: I&D Abscess left Buttock on [id number] Medication List Reviewed:: Yes Allergies Verified: Yes Medical History (Updated 07/16/19 @ 08:31 by Juan David Ozuna MD) Left knee injury (Acute) Onset Date: ~10/24/18 Knee pain, left (Acute) Onset Date: ~10/24/18 Mariam presents for evaluation of left knee pain after twisting injury on Friday. She has a stable knee on exam with some meniscal irritation signs. Of note, she also has a history of Crowley's disease. I counseled her on options including nonoperative management with symptomatic care and physical therapy versus obtaining an MRI for further evaluation. She would like to proceed with a trial of PT and nonoperative management. Acid reflux Ankle fracture, left Onset Date: 06/21/19 left fibula Fibromyalgia H/O menorrhagia Onset Date: Unknown Rare disorder causing involuntary movements and spasms Onset Date: Unknown Seasonal allergies Huntingtons chorea Onset Date: Unknown Rosacea, unspecified Onset Date: Unknown Uterine fibroid Onset Date: Unknown Surgical History (Updated 07/16/19 @ 08:31 by Juan David Ozuna MD) History of incision and drainage Onset Date: 07/14/19 07/14/19 Bagan-w/debridement and packing abscess gluteal cleft and left buttock. History of open reduction and internal fixation (ORIF) procedure Onset Date: ~07/01/19 Open reduction internal fixation left lateral malleolus fracture, syndesmotic stabilization: Dr. Pierson History of tonsillectomy Onset Date: Unknown History of uterine fibroid removal Family History (Updated 07/01/19 @ 11:08 by Ruthann Sahu RN) Father Heart disease Hypertension Mother Dementia History of stroke Binswanger's disease possible these illnesses could have been Crowley's Disease Brother Alive and well Brother Alive and well - Family Anesthesia History Family History:: no untoward family reactions to anesthesia, no familial bleeding tendencies, no family history of clotting disorders, no family history of premature - Airway/Neck/Teeth Within Normal Limits:: Yes Teeth Condition: intact Mallampatti Score: 2 Thyromental (T-M) distance: > 6 cm Mandibulo Hyoid distance: > 3 cm - Respiratory Respiratory Physical: lungs clear Smoking Status: Never smoker Discussed smoking cessation including day of surgery: No Sleep Apnea currently treated: No Sleep Apnea by current assessment: No Discussed Risks/Treatment of EULOGIO: No - Cardiovascular Tolerate Activity: Fair Heart Sounds: S1 & S2, Regular - Anesthesia Assessment and Plan ASA Class: PS, II Anesthesia Type Plan: MAC
[2019-07-16] MEDS ORDERED: BUPIVACAINE HCL/EPINEPHRINE 50 ML VIAL ONE (12:48)
[2019-07-16] MEDS ORDERED: PROPOFOL VIAL IV ONE (13:45)
[2019-07-16] MEDS ORDERED: LIDOCAINE HCL 20 ML VIAL ONE (13:46)
[2019-07-16] MEDS ORDERED: BUPIVACAINE HCL/EPINEPHRINE 50 ML VIAL IJ ONE (14:21)
[2019-07-16] MEDS ORDERED: RINGER'S SOLUTION,LACTATED 1,000 ML IV PRN (14:24)
[2019-07-16] MEDS: GABAPENTIN 400 MG CAPSULE PO SCH ×3 (15:02→16:38)
[2019-07-16] MEDS: DULoxetine HCL 20 MG CAPSULE.SA PO SCH (15:02)
--- NOTE | 2019-07-16 16:43 | DS ---
(1) Abscess, sacrum Diagnosis(s): The patient developed pressure necrosis of subcutaneous fat in the left buttock due to inactivity secondary to immobilization after a left ankle bimalleolar fracture in the face of pre-existing [place]'s chorea. It appears that this became infected and communicated with pre-existing midline pilonidal disease, and so the resulting area included both processes. After debridement and packing changes the wound now has viable subcutaneous tissue and should progress to healing with the use of a wound VAC. She was maintained on IV antibiotics until the wound was laboratory equipment cleaner given the risk of seeding hardware in the left ankle. Problem: Acute (2) Huntingtons chorea Diagnosis(s): Pre-existing and stable. This does complicate her condition in terms of mobility especially in light of a coexisting ankle fracture Problem: Acute (3) Bimalleolar fracture of left ankle Diagnosis(s): Stable. She has follow-up arranged with orthopedics and PT will be provided by home health Problem: Acute Qualifiers: Encounter type: subsequent encounter Date of Discharge:: 07/16/19 Description of Stay: She was taken to the operating room for incision drainage and debridement of a large abscess of the sacrum and left buttock which appeared to be full-thickness skin and subcutaneous pressure necrosis which communicated with pre-existing pilonidal disease. Cultures were obtained and she was placed on IV Cipro and Flagyl to control the infection and avoid seeding the hardware in her left ankle. Her Litchfield chorea meds were continued and she had medication ordered for pain. She was taken back to the operating room on 3 occasions for wound management, culminating in placement of a wound VAC on 07/16/2019. She will be discharged home with home health who will perform the first wound VAC dressing change on Friday. Subsequent dressing changes will be every 2 or 3 days as determined by her progress. They will also provide physical therapy for rehabilitation of her left ankle fracture. The patient will be on a regular diet. She will continue her usual home medications for Litchfield's chorea. Rosa Elena Mohan is confined (homebound) to the home due to a bimalleolar fracture of the left ankle with pre-existing Litchfield's chorea. She has a new abscess with wound VAC placement on the sacrum and left buttock. The need for detention is for nursing to change the wound VAC. The need for physical therapy is for strengthening and mobility training referable to her bimalleolar left ankle fracture. The need for home health care skilled services is directly related to the time spent [id number] with him today. Procedures Performed: see notes below - Her initial procedure was an an incision and drainage of the abscess with scalpel and scissor debridement of skin and subcutaneous tissue and pilonidal cyst tissue with packing. The next day she underwent additional scalpel and scissor excision of nonviable skin and subcutaneous tissue back to viable subcutaneous tissue with packing. Today she underwent irrigation of the wound with placement of a wound VAC. Discharge Location: Home Disposition: Home Health Service Home Health Agency: [facility] Home Health Condition: Good Face to Face Encounter completed per [facility] Guidelines: Yes Discharge Activity: Non-Weight bearing Discharge Diet: General/regular food Referrals: Sanna Méndez MD [Primary Care Provider] - Additional Patient Instructions (free text): [facility] Home Health new at discharge. Please call at discharge and fax discharge information. Complete Home Medications List: Complete Home Medication List: Loratadine [Claritin] 10 mg PO DAILY 11/25/16 gabapentin 400 mg capsule 400 mg PO TID 07/23/18 omeprazole magnesium 20 mg tablet,delayed release 20 mg PO DAILY PRN 10/30/18 naproxen 500 mg tablet 500 mg PO BID #60 tab 05/10/19 tetrabenazine 25 mg tablet 12.5 mg PO BID tab 06/28/19 oxycodone-acetaminophen 5 mg-325 mg tablet 1 - 2 tab PO Q4H PRN #60 tab 07/06/19 duloxetine 20 mg capsule,delayed release 20 mg PO DAILY #30 cap 07/07/19 pregabalin 100 mg capsule 100 mg PO BID #60 cap 07/07/19
[2019-07-16 17:34] VITALS: BP 153/75
--- NOTE | 2019-07-17 09:48 | OR ---
Operative Report - Dictated Report Narrative: OPERATIVE REPORT DATE OF OPERATION: 07/16/2019 PREOPERATIVE DIAGNOSIS: Sacral and left buttock abscess (presumed due to pre- existing pilonidal disease and pressure necrosis left buttock with confluent abscess formation) POSTOPERATIVE DIAGNOSIS: Same (improved) OPERATION: Wound inspection, nonselective gauze debridement, application of wound VAC SURGEON: Juan David Ozuna MD ANESTHESIA: MAC/local Caio Cueto CRNA INDICATIONS FOR PROCEDURE: The patient is a 59-year-old female who recently had ORIF of a bimalleolar left ankle fracture. She has pre-existing [place]'s chorea. She has been very inactive and developed pressure necrosis of left butt ock subcutaneous tissue and an abscess involving that tissue and pre-existing midline pilonidal disease. She underwent initial incision and drainage of the abscess with excisional debridement of skin and subcutaneous tissue on 07/15/2019. Iodoform packing was placed. She was brought back for reinspection of the wound yesterday with additional excisional debridement of additional nonviable skin and subcutaneous tissue. Iodoform packing was placed. She is brought back today for wound inspection and placement of a wound VAC for future management. FINDINGS: No additional nonviable tissue, resolution of surrounding inflammatory changes, and wound amenable to wound VAC application. The wound cavity measures 3 cm x 5 cm opening, 3 cm depth, with 1.5 cm caudal undermining. The wound involves skin and subcutaneous tissue. NARRATIVE OF PROCEDURE: The patient was identified preoperatively and prior to the administration of anesthetic a multidisciplinary timeout was observed. With the patient in the left lateral position and after the administration of intravenous sedation the previous dressing and packing were removed. The sacral area and buttocks were prepped with Betadine solution and isolated with disposable sterile drapes. The cavity and surrounding tissue were inspected. 0.5% Marcaine was used for local anesthetic. The wound was irrigated with saline and nonselectively debrided with gauze. The wound bed appeared to be viable subcutaneous tissue. The skin around the wound was prepped with benzoin. Wound VAC ruiz foam was then tailored and placed in the wound. An additional strip of ruiz foam was tailored to extend up the back to allow placement of the tubing so as to avoid pressure points. The area was then sealed with plastic. An opening was made at the superior end of the foam strip and the adhesive disc applied. The tubing was then connected to the wound VAC suction which demonstrated a very good seal. The operative procedure was terminated at this point. The patient tolerated the anesthetic and procedure well without complication. No specimens were submitted. All counts were correct. There was no measurable bleeding. She was transferred back to her room awake and in stable condition. Plan at this time is for discharge home with home health to manage the wound VAC changes. First change will be 07/19/2019 Reviewed and electronically signed
== END 2019-07-16 17:34 | disposition home health service (06) | DRG 571 ==
LOC: MS 16:39 → SUR 16:39
PROVIDERS: ADMIT Surgery; ATTEND Surgery
DX: L89.326 Pressure-induced deep tissue damage of left buttock; G10 Huntington's disease; L05.01 Pilonidal cyst with abscess; I96 Gangrene, not elsewhere classified; S82.842D Displaced bimalleolar fracture of left lower leg, subsequent encounter for closed fracture with routine healing
CPT/HCPCS: 87070